=== PATIENT | female | born 1975 | race Caucasian/White ===

== ENCOUNTER → 2017-07-07 | Outpatient (CLI) | payer BC ==
--- NOTE | 2017-07-07 15:43 | US ---
EXAMINATION TYPE: US transvaginal DATE OF EXAM: 07/07/2017 COMPARISON: NONE CLINICAL HISTORY: N92.1 Menometrorrhagia. Patient stated has had vaginal bleeding entire June 2017 ; IUD inserted October 2016; HX of uterine fibroids; TECHNIQUE: Transvaginal (TV) Date of LMP: Patient stated normally begins 4th day of each month EXAM MEASUREMENTS: Uterus: 9.1 x 8.6 x 4.9 cm Endometrial Stripe: 0.8 cm Right Ovary: 2.0 x 1.2 x 1.2 cm Left Ovary: 2.5 x 2.6 x 1.7 cm 1. Uterus: Anteverted; enlarged width due to couple of uterine fibroids with larger at right myometr ium = 5.0 x 4.7 x 5.9 cm and smaller fibroid at upper left = 3.2 x 3.4 x 1.9 cm. Small Nabothian cy sts in cervix. 2. Endometrium: Hyperechoic IUD is noted in normal location in upper endometrium 3. Right Ovary: multiple small follicles 4. Left Ovary: multiple follicles with largest = 1.3 x 1.0 x 0.7cm and noted with peripheral ring of color flow 5. Bilateral Adnexa: wnl 6. Posterior cul-de-sac: wnl IMPRESSION: 1. Two hypoechoic myometrial masses, likely uterine leiomyomas, the largest measuring 5.9 cm. 2. Centrally placed intrauterine device bridging the lower and upper uterine segments.
== END | disposition home or self-care (01) ==
LOC: RADUSWWP 14:40
PROVIDERS: ATTEND Internal Medicine
DX: N85.8 Other specified noninflammatory disorders of uterus (principal); N92.1 Excessive and frequent menstruation with irregular cycle; Z97.5 Presence of (intrauterine) contraceptive device
CPT/HCPCS: 76830

== ENCOUNTER → 2017-08-25 | Outpatient (CLI) | payer BC ==
--- NOTE | 2017-08-25 16:45 | P.HPBAR ---
Bariatric H&P - History & Physicial H&P Date: 08/25/17 History & Physicial: Visit/CC: Patient initial contact: Initial weight: Initial weight in pounds: Height: 5 ft 6.5 in Initial BMI: Last weight: Current weight: 129.274 kg Current weight in pounds: Current BMI: 45.3 [place] body weight (based on NIH guidelines): Excess body weight loss: The patient is a 42 year-old F who presents for Bariatric Assessment. Patient presents to the bariatric clinic today as a new patient evaluation for bariatric surgery. The patient states that she has suffered with her weight for the majority of her adult life. She is trying a variety of different weight loss methods without success. Patient is interested in sleeve gastrectomy. Patient suffers from hypertension and chronic back pain. No significant reflux symptoms, no dysphagia, no DVT history. Patient states she may need a hysterectomy because of vaginal bleeding prior to bariatric surgery. She recently completed she believes her 6 month supervised weight loss. Review of Systems The patient denies any acute changes in vision or hearing, no dysphagia or odynophagia, no chest pain or shortness of breath, no dysuria or hematuria, no headache, no runny nose, no rectal bleeding or melena, no unexplained weight loss Past Medical History Past Medical History: Hypertension History of Any Multi-Drug Resistant Organisms: None Reported Past Surgical History: No Surgical Hx Reported Past Anesthesia/Blood Transfusion Reactions: No Reported Reaction Additional Past Anesthesia/Blood Transfusion Reaction / Comm: Never been exposed to anesthesia Past Psychological History: No Psychological Hx Reported Smoking Status: Former smoker Past Alcohol Use History: None Reported Additional Past Alcohol Use History / Comment(s): 1pack/day x 8years, quit smoking 2008 Past Drug Use History: None Reported - Past Family History Father Additional Family Medical History / Comment(s): Arnold Chiari disease/ malformation (brain slips down into spinal canal) Mother Family Medical History: No Reported History Surgical - Exam Physical exam: General: Well-developed, well-nourished HEENT: Normocephalic, sclerae nonicteric Abdomen: Nontender, nondistended Extremities: No edema Neuro: Alert and oriented Bariatric Assessment & Plan (1) Morbid obesity Narrative/Plan: The risks and benefits of surgical weight loss procedures were discussed in detail with the patient today. She remains interested in sleeve gastrectomy. We discussed the anticipated weight loss with that procedure and compared it to the alternative procedures. The risks of all these procedures were reviewed as well. We'll plan upper endoscopy and preoperative lab work. Patient will discuss with her information technology technician the timing of her hysterectomy. Tentatively plan sleeve gastrectomy in the near future. Status: Acute Bariatric Checklist Checklist: Plan: Checklist: EGD: 1. Hiatal hernia: 2. H. Pylori: HgbA1c: Vitamin D: Smoking: Former smoker Primary care physician referral: Psychiatry clearance: Cardiology clearance: Sleep study: Diet journal: VTE risk score: VTE risk level: Rehab needs at discharge:
[2017-08-25 17:13] VITALS: BP 147/66; PULSE 75; RESP 15; TEMP 98; BMI 45.3
== END | disposition home or self-care (01) ==
LOC: BARWHC3 15:04
PROVIDERS: ATTEND Surgery
DX: E66.01 Morbid (severe) obesity due to excess calories (principal); Z68.42 Body mass index [BMI] 45.0-49.9, adult; Z87.891 Personal history of nicotine dependence
CPT/HCPCS: 99211

== ENCOUNTER → 2017-09-02 | Outpatient (CLI) | payer BC, OTHER ==
[2017-09-02 13:23] LABS: HCT 36.1 % (34.0-46.0); HGB 11.4 gm/dL (11.4-16.0); Hypochromasia Moderate; MCH 22.2 pg (25.0-35.0); MCHC 31.5 g/dL (31.0-37.0); MCV 70.3 fL (80.0-100.0); Microcytosis Moderate; Platelet Count 336 k/uL (150-450); RBC 5.13 m/uL (3.80-5.40); RDW 14.4 % (11.5-15.5); WBC 9.3 k/uL (3.8-10.6)
[2017-09-02 13:39] LABS: ALT 28 U/L (9-52); AST 19 U/L (14-36); Albumin 4.7 g/dL (3.5-5.0); Alkaline Phosphatase 81 U/L (38-126); Anion Gap 16 mmol/L; Blood Urea Nitrogen 8 mg/dL (7-17); Calcium 9.9 mg/dL (8.4-10.2); Carbon Dioxide 24 mmol/L (22-30); Chloride 103 mmol/L (98-107); Glucose 99 mg/dL (74-99); Potassium 4.6 mmol/L (3.5-5.1); Sodium 143 mmol/L (137-145); Total Bilirubin 0.4 mg/dL (0.2-1.3); Total Protein 8.2 g/dL (6.3-8.2)
[2017-09-02 18:47] LABS: Vitamin D 25 Hydroxy 11.1 ng/mL (30.0-100.0)
[2017-09-02 21:22] LABS: Hemoglobin A1C 5.5 % (4.0-6.0)
== END | disposition home or self-care (01) ==
LOC: LABWHC1 12:22
PROVIDERS: ATTEND Surgery
DX: E88.81 Metabolic syndrome and other insulin resistance (principal); E66.01 Morbid (severe) obesity due to excess calories; K90.89 Other intestinal malabsorption; E55.9 Vitamin D deficiency, unspecified
CPT/HCPCS: 36415; 80053; 82306; 82607; 83036; 83540; 84425; 85027; 93005

== ENCOUNTER 2017-09-16 11:38 | Day surgery (SDC) | payer BC ==
[2017-09-14 14:33] VITALS: BMI 43.8
[~2017-09-16 11:38] MED LIST: LACTATED RINGERS 1,000 ML IV SCH
[2017-09-16 12:50] VITALS: RESP 16; TEMP 98.4
[2017-09-16] MEDS ORDERED: LIDOCAINE 1% 20 ML VIAL (10MG/ML) FOR IV START INTRADERMA ONE (12:50)
[2017-09-16] MEDS ORDERED: PROPOFOL 10 MG/ML 20 ML VIAL IV ONE (13:38)
[2017-09-16] MEDS ORDERED: MIDAZOLAM 2 MG/2 ML VIAL ONE (13:38)
[2017-09-16] MEDS ORDERED: fentaNYL (PF) 50 MCG/ML 2 ML AMP ONE (13:38)
--- NOTE | 2017-09-16 13:39 | P.GSHP ---
History of Present Illness H&P Date: 09/16/17 Chief Complaint: Anemia, GERD Patient is a bariatric patient who is here for upper and lower endoscopy. Preoperative labs showed iron deficiency anemia. She does have vaginal bleeding. Mild GERD symptoms at times. No dysphagia. Past Medical History Past Medical History: Hypertension History of Any Multi-Drug Resistant Organisms: None Reported Past Surgical History: No Surgical Hx Reported Past Anesthesia/Blood Transfusion Reactions: No Reported Reaction Additional Past Anesthesia/Blood Transfusion Reaction / Comment(s): no prior surgical hx Smoking Status: Former smoker - Past Family History Father Additional Family Medical History / Comment(s): Arnold Chiari disease/ malformation (brain slips down into spinal canal) Mother Family Medical History: No Reported History Medications and Allergies Home Medications Medication Instructions Recorded Confirmed Type Labetalol HCl [Trandate] 600 mg PO BID 08/25/17 09/16/17 History NIFEdipine XL [Procardia Xl] 60 mg PO DAILY 08/25/17 09/16/17 History Allergies Allergy/AdvReac Type Severity Reaction Status Date / Time No Known Allergies Allergy Verified 09/16/17 12:45 Surgical - Exam Vital Signs Temp Pulse Resp BP Pulse Ox 98.4 F 70 16 148/81 99 09/16/17 12:49 09/16/17 12:49 09/16/17 12:49 09/16/17 12:49 09/16/17 12:49 Physical exam: General: Well-developed, well-nourished HEENT: Normocephalic, sclerae nonicteric Abdomen: Nontender, nondistended Extremities: No edema Neuro: Alert and oriented Assessment and Plan (1) Morbid obesity Narrative/Plan: Will proceed with upper and lower endoscopy. Current Visit: No Status: Acute Code(s): E66.01 - MORBID (SEVERE) OBESITY DUE TO EXCESS CALORIES SNOMED Code(s): 697089277
--- NOTE | 2017-09-16 13:54 | P.PCN ---
Date of Procedure: 09/16/17 Procedure(s) Performed: PREOPERATIVE DIAGNOSIS: GERD, iron deficiency anemia POSTOPERATIVE DIAGNOSIS: Stratus with small erosions, PROCEDURE: 1. EGD with biopsy 2. Colonoscopy ANESTHESIA: MAC SURGEON: Nitesh Goss M.D. SPECIMENS: Antrum ENDOSCOPIC PROCEDURE: The patient was on the endoscopy table in the left decubitus position. The Olympus gastroscope was inserted into the oropharynx and passed under direct visualization to the region of the third portion of the duodenum. From that point the scope was slowly withdrawn inspecting all surfaces carefully. There were no neoplastic inflammatory or polypoid lesions throughout the duodenum. The pylorus was widely patent. The stomach was carefully inspected. There was gastritis present with multiple small erosions. A biopsy of the antrum took place to rule out H. pylori. Retroflexion revealed a normal hiatus. The esophagus was then carefully examined. There were no neoplastic inflammatory or polypoid lesions throughout the visualized esophagus. The patient was kept on the endoscopy table in the left decubitus position. The Olympus colonoscope was inserted into the anus and passed under direct visualization to the base of the cecum. The appendiceal orifice was visualized. From that point the scope was slowly withdrawn inspecting all surfaces carefully. There were no neoplastic inflammatory or polypoid lesions throughout the cecum, ascending, transverse, descending, sigmoid and rectum. There was mild diverticulosis noted in the left colon. Digital rectal examination was normal. The patient was taken to the recovery room in stable condition per anesthesia guidelines. RECOMMENDATIONS: Increase fiber. Begin antiacids. Await biopsy results.
[2017-09-16 14:03] VITALS: BP 139/64; PULSE 73
== END 2017-09-16 14:40 | disposition home or self-care (01) ==
LOC: ORWHC2ENDO 11:38
PROVIDERS: ATTEND Surgery
DX: K29.70 Gastritis, unspecified, without bleeding (principal); K25.9 Gastric ulcer, unspecified as acute or chronic, without hemorrhage or perforation; K57.30 Diverticulosis of large intestine without perforation or abscess without bleeding; D50.9 Iron deficiency anemia, unspecified; E66.01 Morbid (severe) obesity due to excess calories; Z68.41 Body mass index [BMI] 40.0-44.9, adult; I10 Essential (primary) hypertension; Z79.899 Other long term (current) drug therapy; Z87.891 Personal history of nicotine dependence
CPT/HCPCS: 81025; 88305; 45378; 43239; J2250; J3010; J2704

== ENCOUNTER → 2017-11-22 | Outpatient (CLI) | payer BC ==
[2017-11-22 13:27] LABS: Basophils # (A) 0.1 k/uL (0-0.2); Basophils % (A) 1 %; Eosinophils # (A) 0.3 k/uL (0-0.7); Eosinophils % (A) 3 %; HCT 33.7 % (34.0-46.0); HGB 10.1 gm/dL (11.4-16.0); Hypochromasia Marked; Lymphocytes # (A) 1.5 k/uL (1.0-4.8); Lymphocytes % (A) 18 %; MCH 20.3 pg (25.0-35.0); MCHC 29.8 g/dL (31.0-37.0); Mean Platelet Volume 6.8; Microcytosis Marked; Monocytes # (A) 0.3 k/uL (0-1.0); Monocytes % (A) 4 %; Neutrophils # (A) 6.1 k/uL (1.3-7.7); Neutrophils % (A) 73 %; Platelet Count 291 k/uL (150-450); RBC 4.96 m/uL (3.80-5.40); RDW 15.1 % (11.5-15.5); WBC 8.4 k/uL (3.8-10.6)
[2017-11-22 13:34] LABS: Anion Gap 12 mmol/L; Blood Urea Nitrogen 12 mg/dL (7-17); Calcium 9.3 mg/dL (8.4-10.2); Carbon Dioxide 22 mmol/L (22-30); Chloride 105 mmol/L (98-107); Glucose 119 mg/dL (74-99); Potassium 4.7 mmol/L (3.5-5.1); Sodium 139 mmol/L (137-145)
== END ==
LOC: LABPAT 12:47
PROVIDERS: ATTEND Obstetrics & Gynecology
DX: Z01.812 Encounter for preprocedural laboratory examination (principal)
CPT/HCPCS: 36415; 80048; 85025

== ENCOUNTER 2017-11-24 05:55 | Observation (INO) | payer BC, OTHER ==
[2017-11-16 17:50] VITALS: BMI 43.8
--- NOTE | 2017-11-23 16:45 | P.HPOB ---
History of Present Illness H&P Date: 11/23/17 Chief Complaint: Fibroid uterus Patient is a 42-year-old female who has an enlarged fibroid uterus. She also has very heavy bleeding with passage of large clots. She had been using ParaGard for control but it sounds uncomfortable. Fibers noted to be 5 cm x 6 cm and 3 cm x 3 cm. There are at least 2 present. In discussions with the patient to try and control her bleeding both on Mirena and NovaSure were also offered to help stop the bleeding. However she would prefer more definitive treatment as she also has increased pressure and urinary and bowel complaints due to the fibroids. She is therefore scheduled for a robotic- assisted laparoscopic hysterectomy possible TIMOTEO and possible BSO. Risks/ benefits/alternatives were discussed with patient in detail and did include but were not limited to damage to bladder, bowel, vascular injuries, nerve damage, bleeding, infection, ureteral injuries. All other questions are answered for her prior to proceeding to the operating room. Past Medical History Past Medical History: Hypertension Additional Past Medical History / Comment(s): uterine fibroids History of Any Multi-Drug Resistant Organisms: None Reported Past Surgical History: No Surgical Hx Reported Additional Past Surgical History / Comment(s): EGD Past Anesthesia/Blood Transfusion Reactions: No Reported Reaction Additional Past Anesthesia/Blood Transfusion Reaction / Comment(s): Never has had general anesthesia or blood transfusion Smoking Status: Former smoker - Past Family History Father Additional Family Medical History / Comment(s): Arnold Chiari disease/ malformation (brain slips down into spinal canal) Mother Family Medical History: No Reported History Medications and Allergies Home Medications Medication Instructions Recorded Confirmed Type Labetalol HCl [Trandate] 600 mg PO BID 08/25/17 11/16/17 History NIFEdipine XL [Procardia Xl] 60 mg PO HS 08/25/17 11/16/17 History Omeprazole [PriLOSEC] 20 mg PO AC-BRKFST #90 cap 09/16/17 11/16/17 Rx Allergies Allergy/AdvReac Type Severity Reaction Status Date / Time No Known Allergies Allergy Verified 11/16/17 17:26 Exam Osteopathic Statement: *. No significant issues noted on an osteopathic structural exam other than those noted in the History and Physical/Consult. - OBG Physical Exam Breast: both: normal (no masses) Abdomen: bowel sounds normal, no diffuse tenderness, no bruit present, no guarding noted, no hepatomegaly, no splenomegaly, no mass Vulva: both: normal Vagina: normal moisture, no discharge Cervix: no lesion, no discharge Uterus: normal size, enlarged (nodular with fibroids), normal contour Adnexa: both: normal Anus/Rectum: normal perianal skin, no rectal mass, no hemorrhoids, heme negative
[2017-11-24] MEDS ORDERED: DEXAMETHASONE SOD PHOSPHATE 10 MG/ML 1 ML VIAL IV ONE (06:07)
[2017-11-24] MEDS ORDERED: ONDANSETRON 4 MG/2 ML VIAL IVP ONE (06:07)
[2017-11-24] MEDS ORDERED: LIDOCAINE 1% 20 ML VIAL (10MG/ML) FOR IV START INTRADERMA ONE (06:35)
[2017-11-24] MEDS: LACTATED RINGERS 1,000 ML IV SCH ×2 (06:35→06:37)
[2017-11-24] MEDS ORDERED: PHENYLEPHRINE-0.9% NACL SYG 1 MG/10 ML SYRINGE ONE (07:29)
[2017-11-24] MEDS ORDERED: KETOROLAC 30 MG/ML 1 ML VIAL ONE (07:29)
[2017-11-24] MEDS ORDERED: NEOSTIGMINE 1 MG/ML 10 ML VIAL ONE (07:29)
[2017-11-24] MEDS ORDERED: GLYCOPYRROLATE 0.2 MG/ML 2 ML VIAL ONE (07:29)
[2017-11-24] MEDS ORDERED: ROCURONIUM BROMIDE 10 MG/ML 10 ML VIAL IV ONE (07:29)
[2017-11-24] MEDS ORDERED: PROPOFOL 10 MG/ML 20 ML VIAL IV ONE (07:29)
[2017-11-24] MEDS ORDERED: HYDROmorphone (PF) 1 MG/ML ONE (07:29)
[2017-11-24] MEDS ORDERED: SUCCINYLCHOLINE CHLORIDE VIAL 200 MG/10 ML VIAL IV ONE (07:29)
[2017-11-24] MEDS ORDERED: ePHEDrine SULFATE/0.9% NACL/PF 50 MG/5 ML SYRINGE IV ONE (07:29)
[2017-11-24] MEDS ORDERED: LIDOCAINE 1% INJ 10MG/ML (20 ML MDV) ONE (07:29)
[2017-11-24] MEDS ORDERED: fentaNYL (PF) 50 MCG/ML 2 ML AMP ONE (07:29)
[2017-11-24] MEDS ORDERED: MIDAZOLAM 2 MG/2 ML VIAL ONE (07:29)
[2017-11-24] MEDS ORDERED: BUPIVACAINE (PF) 0.5% 30 ML VIAL SQ ONE ×2 (07:56)
[2017-11-24] MEDS ORDERED: ONDANSETRON 4 MG/2 ML VIAL IVP PRN (09:02)
[2017-11-24] MEDS ORDERED: SENNOSIDES-DOCUSATE SODIUM 1 EACH TAB PO PRN (09:02)
[2017-11-24] MEDS ORDERED: Acetaminophen-Codeine 300-30mg TAB PO PRN ×2 (09:02)
[2017-11-24] MEDS ORDERED: SIMETHICONE 80 MG CHEWABLE PO PRN (09:02)
[2017-11-24] MEDS ORDERED: diphenhydrAMINE 50 MG/ML 1 ML VIAL IVP PRN (09:02)
--- NOTE | 2017-11-24 09:12 | P.OP ---
Date of Procedure: 11/24/17 Preoperative Diagnosis: Fibroid uterus with menorrhagia Postoperative Diagnosis: Same Procedure(s) Performed: Robotic-assisted laparoscopic hysterectomy Anesthesia: JOE Surgeon: Олег Acosta Insurance Sales Specialist #1: Macy Bills Estimated Blood Loss (ml): 50 Urine output (ml): 300 Pathology: other (Uterus and cervix) Condition: stable Disposition: floor Operative Findings: Grossly enlarged fibroid uterus. Normal ovaries Description of Procedure: Patient was taken to the operating suite where a general anesthetic was found be adequate. She was prepped and draped in the normal sterile fashion and placed in the dorsal lithotomy position. Initially a speculum was inserted into the vagina and the anterior lip of the cervix was identified and grasped with single-tooth tenaculum. Uterus was then sounded to 11 cm and the cup size was measured to 3 cm. Sylvia manipulator was then inserted without difficulty following placement of stay sutures at 3 and 9 on the cervix. Once this was placed Prieto cath was placed and other instruments removed. Gloves were then changed and attention was turned to the abdominal portion procedure where 2 mL of quarter percent Marcaine was injected approximately 2 inches above the umbilicus due to enlarged uterus and measurement of maximal Ascent. Through a 5 mm skin incision a left scopic camera was inserted under direct visualization. Once this was placed patient was placed in steep Trendelenburg position and gas was allowed to fully insufflate the abdomen. 2 lateral ports were then placed through 8 mm skin incisions approximately 10 cm from the umbilicus along the same line. Through these incisions da Dorina ports and sleeves were inserted. Once this was completed a fourth port and sleeve was inserted between the left lateral and the medial port. This was through a 1 cm incision. Again this was placed under direct visualization. Camera port was exchanged for a da Dorina camera port and robot was brought in and docked. Once this was completed with a scissor and the one arm and a [place] grasper and the 2 arm I did break scrub and go to the console. Uterus was then elevated and tipped to the right side and the left ureteral ovarian ligament was identified cauterized and transected. Fallopian tube was then transected following cauterization and tissues through the broad ligament/mesosalpinx were also cauterized and transected to the round ligament. Round then was then cauterized transected and sterilization lateral vascularity along the left side of the uterus was done. Uterus was then retroverted and the bladder flap identified. It was then undermined with the [place] grasper and incised across face uterus with the scissor. Bladder was then bluntly dissected out of the operative field. Once this was accomplished the right side of the uterus was developed similarly to the left side. Once this was accomplished balloon was blown up in the manipulator and an anterior colpotomy was made. Glue cup was identified and then followed in a counterclockwise fashion around the entire cervix cheating head when necessary to maintain excellent hemostasis. Once 3 and 60 was completed uterus is brought into the vagina to maintain pneumoperitoneum. Pelvis was then irrigated bleeding was assessed and verified along the pedicles and then the instruments were exchanged for Baron grasper and a make suture cut. Using to OB lock suture the vagina was then reapproximated in a running fashion. Once this was completed again the pelvis was irrigated no bleeding is noted through the pedicles therefore instruments were removed and gas was allowed to expel from the abdomen. 5 deep breaths were provided during this process. Dr. Bills at this point close the incision subcuticularly with 4-0 Vicryl and I did do a cystoscopy verifying good flow from both ureteral jets. Sponge, lap, needle counts were all correct 2. Patient was then taken to the recovery room in stable and satisfactory condition.
[2017-11-24] MEDS: HYDROmorphone 0.5 MG/0.5 ML SYRINGE IVP PRN ×2 (09:47→10:04)
[2017-11-24] MEDS: KETOROLAC 30 MG/ML 1 ML VIAL IVP PRN ×3 (09:47→21:24)
[2017-11-24 16:41] VITALS: RESP 20
[2017-11-24] MEDS: LABETALOL 200 MG TAB PO SCH (20:17)
[2017-11-24] MEDS ORDERED: ACETAMINOPHEN TAB 325 MG TAB PO PRN (20:49)
[2017-11-25] MEDS: KETOROLAC 30 MG/ML 1 ML VIAL IVP PRN (04:43)
[2017-11-25] MEDS ORDERED: ceFAZolin IN SWFI 2 GM/20 ML SYRINGE IVP ONE (06:00)
[2017-11-25] MEDS: LABETALOL 200 MG TAB PO SCH (08:08)
[2017-11-25] MEDS: LACTATED RINGERS 1,000 ML IV SCH (08:10)
--- NOTE | 2017-11-25 08:48 | P.DS ---
Providers Date of admission: 11/24/17 23:22 Expected date of discharge: 11/25/17 Attending physician: Олег Acosta Primary care physician: Isela Lea [facility] Course: Patient is doing very well postop day 1. She is ambulating, voiding, and she is tolerating her diet. She voices no complaints. Vital signs are stable afebrile. Heart regular, lungs clear, extremities are without pain. Abdomen is soft incisions are clean dry and intact, bowel sounds noted. Prescription for Motrin Motrin has been forwarded to the pharmacy. All of the questions are answered for her at this time. She is stable for discharge this time. She'll follow up with me in 1 week. Discharge instructions were thoroughly reviewed and again all questions are answered for her. Patient Condition at Discharge: Good Plan - Discharge Summary Discharge Rx Participant: No New Discharge Prescriptions: New Ibuprofen [Motrin] 600 mg PO Q6HR PRN #30 tab PRN Reason: Pain No Action NIFEdipine XL [Procardia Xl] 60 mg PO HS Labetalol HCl [Trandate] 600 mg PO BID Discharge Medication List Labetalol HCl [Trandate] 600 mg PO BID 08/25/17 [History] NIFEdipine XL [Procardia Xl] 60 mg PO HS 08/25/17 [History] Ibuprofen [Motrin] 600 mg PO Q6HR PRN #30 tab 11/25/17 [Rx] Follow up Appointment(s)/Referral(s): Олег Acosta DO [Doctor of Osteopathic Medicine] - 1 Week Activity/Diet/Wound Care/Special Instructions: No heavy lifting, limit stairs and driving, and pelvic rest. If any high temperatures, heavy bleeding, or severe pain call my office
[2017-11-25 08:57] VITALS: PULSE 68; TEMP 98
[2017-11-25 09:09] VITALS: BP 136/77
== END 2017-11-25 09:22 ==
LOC: OR 05:55 → 6PED 09:14 → OR 23:22 → 6PED 23:22
PROVIDERS: ADMIT Obstetrics & Gynecology; ATTEND Obstetrics & Gynecology
DX: D25.9 Leiomyoma of uterus, unspecified (principal); N72 Inflammatory disease of cervix uteri; N92.1 Excessive and frequent menstruation with irregular cycle; N93.9 Abnormal uterine and vaginal bleeding, unspecified; I10 Essential (primary) hypertension; Z79.899 Other long term (current) drug therapy; Z87.891 Personal history of nicotine dependence; Z82.79 Family history of other congenital malformations, deformations and chromosomal abnormalities
CPT/HCPCS: 58550; S2900; 81025; 86850; 86900; 86901; 88307

== ENCOUNTER → 2018-10-17 | Outpatient (CLI) | payer BC ==
[2018-10-17 13:24] VITALS: BP 181/93; PULSE 91; TEMP 98.7; BMI 44.5
--- NOTE | 2018-10-17 14:00 | P.BASOAP ---
Subjective Progress Note Date: 10/17/18 Principal diagnosis: Morbid obesity Patient returns today for follow-up evaluation. Last seen in September of last year. Had upper endoscopy done then which showed mild gastritis. Patient is ready for sleeve gastrectomy at this time. She underwent da Dorina hysterectomy last year. No other changes to her medical history. Objective - Vital Signs Vital signs: Vital Signs Temp 98.7 F 10/17/18 13:21 Pulse 91 10/17/18 13:21 Resp BP 181/93 10/17/18 13:21 Pulse Ox Intake & Output 10/16/18 10/17/18 10/17/18 18:59 06:59 18:59 Weight 127.006 kg - Exam Abdomen: Soft, nontender, nondistended Assessment/Plan (1) Morbid obesity Narrative/Plan: Review the surgical consent form in detail. All questions answered. Patient anxious to proceed with sleeve gastrectomy. We'll tentatively schedule in the next 4 weeks or so. Plan: Date: 10/17/18 Initial Weight: 126.915 kg Initial BMI: 44.4 Current Weight: 127.006 kg Current BMI: 44.5 Type of Surgery: Total Volume in Band: Previous Volume: Volume Removed: Volume Added: Band Size:
== END ==
LOC: BARWHC3 13:11
PROVIDERS: ATTEND Surgery
DX: E66.01 Morbid (severe) obesity due to excess calories (principal); Z68.41 Body mass index [BMI] 40.0-44.9, adult; Z90.710 Acquired absence of both cervix and uterus
CPT/HCPCS: 99211

== ENCOUNTER → 2018-10-23 | Outpatient (CLI) | payer BC ==
[2018-10-23 14:21] VITALS: BMI 45.4
== END ==
LOC: BARWHC3 09:05
PROVIDERS: ATTEND Surgery
DX: E66.01 Morbid (severe) obesity due to excess calories (principal); Z68.42 Body mass index [BMI] 45.0-49.9, adult
CPT/HCPCS: 97804

== ENCOUNTER → 2018-11-13 | Outpatient (CLI) | payer BC ==
[2018-11-13 14:47] LABS: Basophils % (A) 0 %; Eosinophils # (A) 0.2 k/uL (0-0.7); Eosinophils % (A) 2 %; HGB 12.6 gm/dL (11.4-16.0); Lymphocytes % (A) 22 %; MCHC 32.3 g/dL (31.0-37.0); MCV 80.6 fL (80.0-100.0); Mean Platelet Volume 8.1; Monocytes # (A) 0.3 k/uL (0-1.0); Monocytes % (A) 4 %; Neutrophils # (A) 6.3 k/uL (1.3-7.7); Neutrophils % (A) 71 %; Platelet Count 258 k/uL (150-450); RBC 4.84 m/uL (3.80-5.40); RDW 14.7 % (11.5-15.5); WBC 8.9 k/uL (3.8-10.6)
[2018-11-13 15:02] LABS: ALT 17 U/L (9-52); AST 20 U/L (14-36); African American GFR (CKD) >90 (>60 ml/min/1.73 sqM); Albumin 4.4 g/dL (3.5-5.0); Alkaline Phosphatase 78 U/L (38-126); Anion Gap 9 mmol/L; Blood Urea Nitrogen 16 mg/dL (7-17); Calcium 9.1 mg/dL (8.4-10.2); Carbon Dioxide 25 mmol/L (22-30); Chloride 105 mmol/L (98-107); Glucose 124 mg/dL (74-99); Potassium 4.3 mmol/L (3.5-5.1); Sodium 139 mmol/L (137-145); Total Bilirubin 0.5 mg/dL (0.2-1.3); Total Protein 7.1 g/dL (6.3-8.2)
== END | disposition home or self-care (01) ==
LOC: LABPAT 14:00
PROVIDERS: ATTEND Surgery
DX: Z01.812 Encounter for preprocedural laboratory examination (principal)
CPT/HCPCS: 36415; 80053; 85025; 93005

== ENCOUNTER 2018-11-27 06:57 | Inpatient (IN) | payer BC ==
[~2018-11-27 06:57] MED LIST changes: +DEXAMETHASONE SOD PHOSPHATE 10 MG/ML 1 ML VIAL IV ONE; +ENOXAPARIN 40 MG/0.4 ML SYRINGE SQ ONE; -LACTATED RINGERS 1,000 ML IV SCH; +LIDOCAINE 1% 20 ML VIAL (10MG/ML) FOR IV START INTRADERMA PRN; +MIDAZOLAM 2 MG/2 ML VIAL IV PRN; +ONDANSETRON 4 MG/2 ML VIAL IVP ONE; +ceFAZolin 3 GM in SODIUM CHLORIDE 0.9% 100 ML IVPB ONE; +fentaNYL (PF) 50 MCG/ML 2 ML AMP IV PRN
[2018-11-27] MEDS: LACTATED RINGERS 1,000 ML IV SCH (07:31)
--- NOTE | 2018-11-27 07:47 | P.GSHP ---
History of Present Illness H&P Date: 11/27/18 Chief Complaint: Release 49-year-old female with known to our service. Here today for sleeve gastrectomy. Patient first seen for evaluation of bariatric surgery in August 2017. Patient has tried a variety of different weight loss methods without success. Patient suffers from hypertension and chronic back pain. Patient with iron deficiency anemia likely related to vaginal bleeding. Recent upper and lower endoscopy showed gastritis with erosions. Past Medical History Past Medical History: Hypertension Additional Past Medical History / Comment(s): uterine fibroids History of Any Multi-Drug Resistant Organisms: None Reported Past Surgical History: Hysterectomy Additional Past Surgical History / Comment(s): EGD Past Anesthesia/Blood Transfusion Reactions: No Reported Reaction Additional Past Anesthesia/Blood Transfusion Reaction / Comment(s): Never has had general anesthesia or blood transfusion Smoking Status: Former smoker - Past Family History Father Additional Family Medical History / Comment(s): Arnold Chiari disease/malformation (brain slips down into spinal canal) Mother Family Medical History: No Reported History Medications and Allergies Home Medications Medication Instructions Recorded Confirmed Type Labetalol HCl [Trandate] 600 mg PO HS 08/25/17 11/27/18 History Labetalol [Trandate] 400 mg PO QAM 11/15/18 11/27/18 History Allergies Allergy/AdvReac Type Severity Reaction Status Date / Time No Known Allergies Allergy Verified 11/27/18 07:14 Surgical - Exam Vital Signs Temp Pulse Resp BP Pulse Ox 97 F L 68 16 149/77 97 11/27/18 07:20 11/27/18 07:20 11/27/18 07:20 11/27/18 07:20 11/27/18 07:20 Physical exam: General: Well-developed, well-nourished HEENT: Normocephalic, sclerae nonicteric Abdomen: Nontender, nondistended Extremities: No edema Neuro: Alert and oriented Assessment and Plan (1) Morbid obesity Narrative/Plan: Will proceed with laparoscopic sleeve gastrectomy at this time. The risks of bleeding, infection, stenosis, stricture, leak, abscess, fistula formation, peritonitis, poor weight loss, reflux, vomiting, conversion to an open procedure, aborting sleeve gastrectomy, MS, PE, DVT, and were discussed. The patient understands and wishes to proceed. Current Visit: No Status: Acute Code(s): E66.01 - MORBID (SEVERE) OBESITY DUE TO EXCESS CALORIES SNOMED Code(s): 179307022
[2018-11-27] MEDS ORDERED: PROPOFOL 10 MG/ML 20 ML VIAL IV ONE (08:25)
[2018-11-27] MEDS ORDERED: NEOSTIGMINE 1 MG/ML 10 ML VIAL ONE (08:25)
[2018-11-27] MEDS ORDERED: GLYCOPYRROLATE 0.2 MG/ML 2 ML VIAL ONE (08:25)
[2018-11-27] MEDS ORDERED: HYDROmorphone (PF) 1 MG/ML ONE (08:25)
[2018-11-27] MEDS ORDERED: ROCURONIUM BROMIDE 10 MG/ML 10 ML VIAL IV ONE (08:25)
[2018-11-27] MEDS ORDERED: MIDAZOLAM 2 MG/2 ML VIAL ONE (08:25)
[2018-11-27] MEDS ORDERED: fentaNYL (PF) 50 MCG/ML 2 ML AMP ONE (08:25)
[2018-11-27] MEDS ORDERED: LIDOCAINE 1% INJ 10MG/ML (20 ML MDV) ONE (08:25)
[2018-11-27] MEDS ORDERED: BUPIVACAINE (PF) 0.5% 30 ML VIAL SQ ONE ×2 (08:33)
[2018-11-27] MEDS ORDERED: METHYLENE BLUE 3 MG in DEXTROSE 5% IN WATER 500 ML IRRIGATION ONE ×2 (08:49)
[2018-11-27] MEDS ORDERED: LACTATED RINGERS 1,000 ML IV ONE ×2 (08:49→10:56)
[2018-11-27] MEDS ORDERED: NALOXONE 0.4 MG/ML 1 ML VIAL IV PRN (10:20)
[2018-11-27] MEDS ORDERED: diphenhydrAMINE 50 MG/ML 1 ML VIAL IVP PRN (10:20)
--- NOTE | 2018-11-27 10:24 | P.OP ---
Date of Procedure: 11/27/18 Procedure(s) Performed: PREOPERATIVE DIAGNOSIS: Morbid obesity, hypertension, chronic back pain POSTOPERATIVE DIAGNOSIS: Same, hiatal hernia PROCEDURE: Laparoscopic sleeve gastrectomy with repair hiatal hernia SURGEON: Ana Paula EBL: Minimal ANESTHESIA: General COMPLICATIONS: None OPERATIVE PROCEDURE: Patient was placed in the operating table in the supine position. She was placed under general anesthesia at that time. The abdomen was prepped and draped in sterile fashion after the patient was placed in l ithotomy. A 5 mm optical trocar was used to enter the abdominal cavity in the left upper quadrant. Insufflation took place to 15 millimeters mercury. An additional right subxiphoid 5 mm trocar was then placed under direct relation and then removed. 2 additional 5 mm trochars were placed in the right upper quadrant and left upper quadrant under direct visualization and a 15 mm trocar in the supraumbilical location. The liver was retracted using a medium Robert liver retractor through the right subxiphoid trocar site. The hiatus was inspected. The patient had a small sized hiatal hernia. Circumferentially the phrenoesophageal ligament was incised identifying the actual defect. The right diaphragmatic crura was well visualized. I was able to bluntly dissect and visualize the left diaphragmatic crura. At that point I moved to the mid aspect of the greater curvature the stomach. The short gastric vasculature was divided using a LigaSure device proximally. I then switched and divided the short gastrics distally to a 3-4 cm from the pylorus. The dissection took place up to the left diaphragmatic crura at that point. The posterior short gastrics were likewise divided using the LigaSure device. Once the stomach was fully mobilized the blunt tipped 40-Argentine bougie dilator was advanced into the stomach and advanced all the way to the prepyloric location. A black echelon 60 stapler with seam guard was utilized and fired tangentially across the antrum taking care to avoid narrowing at the incisura angularis. Subsequent firings of the stapler took place. A total of 5 green echelon 60 staplers with seam guard took place proximally staying on the outer edge of our dilator. Once we reached the most proximal portion of the stomach a single firing of the gold echelon 60 stapler without seen guard took place. This only covered a distance of about 1 cm. The oral gastric tube was reinserted. The stomach was insufflated with approximately 100 mL of methylene blue. No evidence of leak or obstruction was seen. The hiatus was then addressed once again. A single 2-0 Ethibond suture was used to reapproximate the crura posteriorly. This adequately closed the di aphragmatic hernia. Tisseel fibrin glue was then sprayed along the entire length of the staple line. No bleeding was identified. The distal aspect of the sleeve was then reapproximated to the gastrosplenic and gastrocolic ligament using a short running 20 strata fix suture. This was done to prevent kinking or twisting of the sleeve. The stomach remnant was removed from the 15 mm trocar site without difficulty. The fascia at the 15 more site was closed using interrupted 0 Vicryl sutures with the laparoscopic suture passer and Linus Jennifer technique. The insufflation was evacuated. The skin at all 5 incisions were closed using 4-0 Monocryl sutures. Skin glue was then applied. DISPOSITION: Stable to recovery room
[2018-11-27] MEDS ORDERED: ACETAMINOPHEN IV (For NPO) 1,000 MG in EMPTY BAG 1 BAG IVPB ONE (10:30)
[2018-11-27] MEDS: HYDROmorphone 0.5 MG/0.5 ML SYRINGE IVP PRN ×3 (10:33→10:52)
[2018-11-27] MEDS ORDERED: ONDANSETRON 4 MG/2 ML VIAL IVP ONE (10:44)
[2018-11-27] MEDS: ALBUTEROL NEBULIZED 2.5 MG/3 ML INHALATION SCH ×3 (12:52→21:04)
[2018-11-27] MEDS: SIMETHICONE 40 MG/0.6 ML DROPS 2,000 MG/30 ML BOTTLE PO PRN (14:21)
[2018-11-27] MEDS: 0.9% NACL WITH KCL 20 MEQ/L 1,000 ML IV SCH ×2 (14:22→20:56)
[2018-11-27] MEDS: HYDROmorphone 1 MG/ML 1 ML SYRINGE IVP PRN ×2 (17:05→21:12)
[2018-11-27] MEDS: HYOSCYAMINE ORAL DROPS 1.875 MG/15 ML BOTTLE PO PRN (17:09)
--- NOTE | 2018-11-27 20:11 | P.CONS ---
History of Present Illness - History of Present Illness This is a pleasant 43 years old female with past medical history of morbid ob esity, hypertension, history and fibroids status post hysterectomy, chronic back pain. She presents for elective sleeve gastrectomy. Today is postop day 0, medical consult has been ordered for medical management. Post operatively patient was complaining of from chest pain which is improving with observation. Patient denies dyspnea or dizziness, however she looks drowsy from the anesthesia. No abdominal pain or nausea vomiting. No fever. Except for an asymptomatic mild bradycardia, vitals looks stable. Currently she is on normal saline at 150 mL per hour and various pain medication and Lovenox for DVT prophylaxis. Also she got doses of antibiotics, she has chest pain which is improved . pt is still NPO ,and going for swallow eval in the morning . Review of Systems CONSTITUTIONAL: No fever, no malaise, no fatigue. HEENT: No recent visual problems or hearing problems. Denied any sore throat. CARDIOVASCULAR: No orthopnea, PND, no palpitations, no syncope. PULMONARY: No shortness of breath, no cough, no hemoptysis. GASTROINTESTINAL: No diarrhea, no nausea, no vomiting, no abdominal pain. Normoactive bowel sounds. NEUROLOGICAL: No headaches, no weakness, no numbness. HEMATOLOGICAL: Denies any bleeding or petechiae. GENITOURINARY: Denies any burning micturition, frequency, or urgency. MUSCULOSKELETAL/RHEUMATOLOGICAL: Denies any joint pain, swelling, or any muscle pain. ENDOCRINE: Denies any polyuria or polydipsia. Past Medical History Past Medical History: Hypertension Additional Past Medical History / Comment(s): uterine fibroids History of Any Multi-Drug Resistant Organisms: None Reported Past Surgical History: Hysterectomy Additional Past Surgical History / Comment(s): EGD Past Anesthesia/Blood Transfusion Reactions: No Reported Reaction Additional Past Anesthesia/Blood Transfusion Reaction / Comm: Never has had general anesthesia or blood transfusion Past Psychological History: No Psychological Hx Reported Smoking Status: Former smoker Past Alcohol Use History: None Reported Additional Past Alcohol Use History / Comment(s): 1pack/day x 8years, quit smoking 2008 Past Drug Use History: None Reported - Past Family History Father Additional Family Medical History / Comment(s): Arnold Chiari disease/malformation (brain slips down into spinal canal) Mother Family Medical History: No Reported History Medications and Allergies Home Medications Medication Instructions Recorded Confirmed Type Labetalol HCl [Trandate] 600 mg PO HS 08/25/17 11/27/18 History Labetalol [Trandate] 400 mg PO QAM 11/15/18 11/27/18 History Allergies Allergy/AdvReac Type Severity Reaction Status Date / Time No Known Allergies Allergy Verified 11/27/18 10:29 Physical Exam Vitals: Vital Signs Temp Pulse Pulse Resp BP BP Pulse Ox 11/27/18 11:36 97.6 F 54 L 16 154/85 11/27/18 11:15 54 L 16 160/69 99 11/27/18 10:54 52 L 16 160/74 100 11/27/18 10:39 52 L 16 140/62 100 11/27/18 10:24 52 L 16 140/62 100 11/27/18 10:09 97.2 F L 54 L 14 142/65 98 11/27/18 07:20 97 F L 68 16 149/77 97 Intake and Output 11/26/18 11/27/18 11/27/18 22:59 06:59 14:59 Intake Total 2200 Output Total 10 Balance 2190 Intake: IV 2200 Output: Estimated Blood Loss 10 GENERAL: The patient is alert and oriented x3, not in any acute distress. Well developed, well nourished. HEENT: Pupils are round and equally reacting to light. EOMI. No scleral icterus. No conjunctival pallor. Normocephalic, atraumatic. No pharyngeal erythema. No thyromegaly. CARDIOVASCULAR: S1 and S2 present. No murmurs, rubs, or gallops. PULMONARY: Chest is clear to auscultation, no wheezing or crackles. ABDOMEN: Soft, nontender, nondistended, normoactive bowel sounds. No palpable organomegaly. MUSCULOSKELETAL: No joint swelling or deformity. EXTREMITIES: No cyanosis, clubbing, or pedal edema. NEUROLOGICAL: Gross neurological examination did not reveal any focal deficits. SKIN: No rashes. Assessment and Plan Assessment: She is status post laparoscopic sleeve gastrectomy surgery He attends hernia, status post surgical repair Hypertension Morbid obesity Chronic back pain History of uterine fibroids status post hysterectomy Plan: This is a pleasant 44 years old female who presents for elective sleeve gastrectomy and he Hiatal hernia repair. swallow eval in am Labs and medication were reviewed.. Continue same treatment. Continue with symptomatic treatment. Resume home medication. Monitor lytes and vitals. DVT and GI prophylaxis. Pain management and DVT prophylaxis as per surgical team. Further recommendations of the clinical course of the patient Thank you for consulting us, please feel free to contact us for any further question or clarification.
[2018-11-27] MEDS: ENOXAPARIN 40 MG/0.4 ML SYRINGE SQ SCH (21:06)
[2018-11-27] MEDS: ONDANSETRON 4 MG/2 ML VIAL IVP PRN (21:07)
[2018-11-28] MEDS: SIMETHICONE 40 MG/0.6 ML DROPS 2,000 MG/30 ML BOTTLE PO PRN ×2 (02:29→08:35)
[2018-11-28] MEDS: HYOSCYAMINE ORAL DROPS 1.875 MG/15 ML BOTTLE PO PRN ×2 (02:30→08:35)
[2018-11-28] MEDS: HYDROmorphone 1 MG/ML 1 ML SYRINGE IVP PRN ×3 (02:33→11:01)
[2018-11-28] MEDS: 0.9% NACL WITH KCL 20 MEQ/L 1,000 ML IV SCH ×2 (02:40→10:50)
[2018-11-28] MEDS: LACTATED RINGERS 1,000 ML IV SCH (05:16)
[2018-11-28] MEDS: ALBUTEROL NEBULIZED 2.5 MG/3 ML INHALATION SCH ×4 (07:40→20:13)
[2018-11-28] MEDS: ONDANSETRON 4 MG/2 ML VIAL IVP PRN (08:16)
[2018-11-28] MEDS: ENOXAPARIN 40 MG/0.4 ML SYRINGE SQ SCH ×2 (08:16→22:51)
[2018-11-28] MEDS: hydrALAZINE HCL 20 MG/ML 1 ML VIAL IVP PRN ×2 (08:35)
[2018-11-28] MEDS ORDERED: PANTOPRAZOLE 40 MG/10 ML VIAL IV SCH (09:00)
[2018-11-28] MEDS ORDERED: ONDANSETRON 4 MG/2 ML VIAL IVP STA (11:03)
--- NOTE | 2018-11-28 11:13 | FL ---
EXAMINATION TYPE: FL UGI DATE OF EXAM: 11/28/2018 COMPARISON: NONE HISTORY: Postop gastric sleeve surgery TECHNIQUE: A single contrast UGI study is performed after injection of 50 mL of Isovue-370. 1 minute and 19 seconds of fluoroscopy time was utilized with 18 images save FINDINGS: The patient swallowed contrast without difficulty or delay. Esophageal peristalsis and mo tility are within normal limits. There is good flow of contrast along the diaphragmatic hiatus into proximal stomach and subsequent flow into gastric sleeve. There is good flow from distal sleeve into pylorus and duodenal sweep. Patient remains asymptomatic. There is no evidence of contrast extravasat ion to suggest leak. IMPRESSION: No evidence of leak or significant obstruction status post recent gastric sleeve surgery.
[2018-11-28 11:23] VITALS: BMI 43.8
[2018-11-28] MEDS: 1: MVI, ADULT NO.4 WITH VIT K 10 ML, THIAMINE 100 MG, FOLIC ACID 1 MG, POTASSIUM CHLORID IV SCH ×12 (11:26→19:25)
[2018-11-28 12:06] LABS: Basophils % (A) 0 %; Eosinophils % (A) 0 %; HCT 39.4 % (34.0-46.0); HGB 12.7 gm/dL (11.4-16.0); Lymphocytes # (A) 1.1 k/uL (1.0-4.8); Lymphocytes % (A) 8 %; MCH 26.3 pg (25.0-35.0); MCHC 32.2 g/dL (31.0-37.0); MCV 81.7 fL (80.0-100.0); Mean Platelet Volume 8.2; Monocytes # (A) 0.4 k/uL (0-1.0); Monocytes % (A) 3 %; Neutrophils % (A) 89 %; Platelet Count 228 k/uL (150-450); RBC 4.82 m/uL (3.80-5.40); RDW 15.4 % (11.5-15.5); WBC 13.6 k/uL (3.8-10.6)
[2018-11-28 12:14] LABS: African American GFR (CKD) >90 (>60 ml/min/1.73 sqM); Anion Gap 9 mmol/L; Blood Urea Nitrogen 9 mg/dL (7-17); Calcium 8.8 mg/dL (8.4-10.2); Carbon Dioxide 24 mmol/L (22-30); Chloride 106 mmol/L (98-107); Phosphorus 2.2 mg/dL (2.5-4.5); Potassium 4.6 mmol/L (3.5-5.1); Sodium 139 mmol/L (137-145)
[2018-11-28] MEDS ORDERED: Phosphorus Replacement Protoco 1 EACH MISC MISCELLANE PRN (12:45)
[2018-11-28] MEDS ORDERED: HYDROcodone/APAP 15 ML SOLUTION PO PRN (12:48)
[2018-11-28] MEDS ORDERED: ONDANSETRON 4 MG/2 ML VIAL IVP PRN (12:49)
--- NOTE | 2018-11-28 12:50 | P.PN ---
<Tequila Gandhi Tasha - Last Filed: 11/28/18 12:46> Subjective Progress Note Date: 11/28/18 CHIEF COMPLAINT: Morbid obesity HISTORY OF PRESENT ILLNESS: 43-year-old female who is status post laparoscopic sleeve gastrectomy with repair of hiatal hernia. POD #1. Patient examined this morning at the bedside. Patient reports uncontrolled pain. Nursing at bedside and currently administering IV pain medication. Patient also reports nausea with dry heaves overnight. Esophagram completed this morning is negative for leak or obstruction. Patient states she has been up ambulating to the bathroom but has not been ambulate in the hallway yet. Blood pressure this morning significantly elevated at 203/87. Repeat blood pressure 167/80. She is afebrile. W BC 13.6. Hemoglobin 12.7. PHYSICAL EXAM: VITAL SIGNS: Reviewed. GENERAL: Well-developed in no acute distress. HEENT: No sclera icterus. Extraocular movements grossly intact. Moist buccal mucosa. Head is atraumatic, normocephalic. ABDOMEN: Obese. Soft. Nondistended. Surgical tenderness. Surgical sites clean dry and intact without drainage or signs of infection. NEUROLOGIC: Alert and oriented. Cranial nerves II through XII grossly intact. ASSESSMENT: 1. Morbid obesity, status post sleeve gastrectomy and hiatal hernia repair PLAN: 1. Begin bariatric clear liquid diet as tolerated if nausea improves. Continue antibiotics. Increase frequency of Zofran to every 6 hours. 2. Monitor blood pressure. May resume home antihypertensives 3. Activity as tolerated. Patient encouraged to be ambulate in the hallway today. 4. Incentive spirometry 5. Pain control. Continue Dilaudid. Will add [place] PRN 6. Replace phosphorus 7. Monitor white count. Repeat in a.m. Nurse practitioner note has been reviewed by physician. Signing provider agrees with the documented findings, assessment, and plan of care. Objective - Vital Signs Vital signs: Vital Signs Temp 98.1 F 11/28/18 07:58 Pulse 85 11/28/18 07:58 Resp 16 11/28/18 07:58 BP 167/80 11/28/18 11:18 Pulse Ox 95 11/28/18 07:58 Intake & Output 11/27/18 11/28/18 11/28/18 18:59 06:59 18:59 Intake Total 2200 Output Total 10 Balance 2190 Weight 127.006 kg Intake: IV 2200 Output: Estimated Blood Loss 10 Other: Voiding Method Toilet Toilet # Voids 1 1 - Labs CBC & Chem 7: 11/28/18 11:20 11/28/18 11:20 Labs: Abnormal Lab Results - Last 24 Hours (Table) 11/28/18 11/28/18 Range/Units 11:20 11:20 WBC 13.6 H (3.8-10.6) k/uL Neutrophils # 12.0 H (1.3-7.7) k/uL Creatinine 0.48 L (0.52-1.04) mg/dL Phosphorus 2.2 L (2.5-4.5) mg/dL <Nitesh Goss - Last Filed: 11/28/18 17:15> Subjective As above. Patient still nauseated. Upper GI shows no evidence of leak or obstruction. Continue bariatric liquid diet. Add Toradol for pain control. Minimize narcotic use. Objective - Vital Signs Vital signs: Vital Signs Temp 98.7 F 11/28/18 12:37 Pulse 62 11/28/18 16:13 Resp 16 11/28/18 12:37 BP 153/80 11/28/18 12:37 Pulse Ox 98 11/28/18 16:02 Intake & Output 11/27/18 11/28/18 11/28/18 18:59 06:59 18:59 Intake Total 2200 250 Output Total 10 Balance 2190 250 Weight 127.006 kg Intake: IV 2200 Intake, IV Titration 250 Amount Sodium Phosphate 10 mmol 250 In Sodium Chloride 0.9% 250 ml @ 125 mls/hr IVPB ONCE ONE Rx#:[id number] Output: Estimated Blood Loss 10 Other: Voiding Method Toilet Toilet # Voids 1 1 1 - Labs CBC & Chem 7: 11/28/18 11:20 11/28/18 11:20 Labs: Abnormal Lab Results - Last 24 Hours (Table) 11/28/18 11/28/18 Range/Units 11:20 11:20 WBC 13.6 H (3.8-10.6) k/uL Neutrophils # 12.0 H (1.3-7.7) k/uL Creatinine 0.48 L (0.52-1.04) mg/dL Phosphorus 2.2 L (2.5-4.5) mg/dL Assessment and Plan (1) Morbid obesity Current Visit: No Status: Acute Code(s): E66.01 - MORBID (SEVERE) OBESITY DUE TO EXCESS CALORIES SNOMED Code(s): 342999349
[2018-11-28] MEDS ORDERED: SODIUM PHOSPHATE 10 MMOL in SODIUM CHLORIDE 0.9% 250 ML IVPB ONE (13:00)
[2018-11-28] MEDS: LABETALOL 200 MG TAB PO SCH (14:10)
[2018-11-28] MEDS: KETOROLAC 30 MG/ML 1 ML VIAL IVP SCH (16:32)
--- NOTE | 2018-11-28 18:42 | P.PN ---
Subjective This is a pleasant 43 years old female with past medical history of morbid obesity, hypertension, history and fibroids status post hysterectomy, chronic back pain. She presents for elective sleeve gastrectomy. Today is postop day 0, medical consult has been ordered for medical management. Post operatively patient was complaining of from chest pain which is improving with observation. Patient denies dyspnea or dizziness, however she looks drowsy from the anesthesia. No abdominal pain or nausea vomiting. No fever. Except for an asymptomatic mild bradycardia, vitals looks stable. Currently she is on normal saline at 150 mL per hour and various pain medication and Lovenox for DVT prophylaxis. Also she got doses of antibiotics, she has chest pain which is improved . pt is still NPO ,and going for swallow eval in the morning . 11/28/2018 pt was feeling nauseated today , with no chest pain or dyspnea , zofran is given, toradol was added for better pain control , pt is to be evaluated by swallow test and if she pass it she can be started on oral meds and diet. wound in the abd x 3 look healing. pt is able to go to the restroom by her self. Objective - Vital Signs Vital signs: Vital Signs Temp 98.7 F 11/28/18 12:37 Pulse 62 11/28/18 16:13 Resp 16 11/28/18 12:37 BP 153/80 11/28/18 12:37 Pulse Ox 98 11/28/18 16:02 Intake & Output 11/27/18 11/28/18 11/28/18 18:59 06:59 18:59 Intake Total 2200 250 Output Total 10 Balance 2190 250 Weight 127.006 kg Intake: IV 2200 Intake, IV Titration 250 Amount Sodium Phosphate 10 mmol 250 In Sodium Chloride 0.9% 250 ml @ 125 mls/hr IVPB ONCE ONE Rx#:[id number] Output: Estimated Blood Loss 10 Other: Voiding Method Toilet Toilet # Voids 1 1 1 - Exam GENERAL: The patient is alert and oriented x3, not in any acute distress. Well developed, well nourished. HEENT: Pupils are round and equally reacting to light. EOMI. No scleral icterus. No conjunctival pallor. Normocephalic, atraumatic. No pharyngeal erythema. No thyromegaly. CARDIOVASCULAR: S1 and S2 present. No murmurs, rubs, or gallops. PULMONARY: Chest is clear to auscultation, no wheezing or crackles. -ABDOMEN: Soft, nontender, nondistended, normoactive bowel sounds. No palpable organomegaly. 3 small wound in abd wall are healing well MUSCULOSKELETAL: No joint swelling or deformity. EXTREMITIES: No cyanosis, clubbing, or pedal edema. NEUROLOGICAL: Gross neurological examination did not reveal any focal deficits. SKIN: No rashes. - Labs CBC & Chem 7: 11/28/18 11:20 11/28/18 11:20 Labs: Abnormal Lab Results - Last 24 Hours (Table) 11/28/18 11/28/18 Range/Units 11:20 11:20 WBC 13.6 H (3.8-10.6) k/uL Neutrophils # 12.0 H (1.3-7.7) k/uL Creatinine 0.48 L (0.52-1.04) mg/dL Phosphorus 2.2 L (2.5-4.5) mg/dL Assessment and Plan Assessment: She is status post laparoscopic sleeve gastrectomy surgery He attends hernia, status post surgical repair Hypertension Morbid obesity Chronic back pain History of uterine fibroids status post hysterectomy Plan: This is a pleasant 44 years old female who presents for elective sleeve gastrectomy and he Hiatal hernia repair. Labs and medication were reviewed.. Continue same treatment. Continue with symptomatic treatment. Resume home medication. Monitor lytes and vitals. DVT and GI prophylaxis. Pain management and DVT prophylaxis as per surgical team. Further recommendations of the clinical course of the patient Thank you for consulting us, please feel free to contact us for any further question or clarification.
[2018-11-28] MEDS ORDERED: LABETALOL 200 MG TAB PO SCH (21:00)
[2018-11-29] MEDS: KETOROLAC 30 MG/ML 1 ML VIAL IVP SCH ×3 (05:01→12:57)
[2018-11-29] MEDS: LACTATED RINGERS 1,000 ML IV SCH (07:06)
[2018-11-29] MEDS: ALBUTEROL NEBULIZED 2.5 MG/3 ML INHALATION SCH ×3 (08:22→15:22)
[2018-11-29] MEDS ORDERED: MAG HYDROX/AL HYDROX/SIMETH 30 ML CUP PO PRN (08:36)
[2018-11-29] MEDS ORDERED: PANTOPRAZOLE 40 MG TABLET PO SCH (08:45)
[2018-11-29] MEDS: 1: MVI, ADULT NO.4 WITH VIT K 10 ML, THIAMINE 100 MG, FOLIC ACID 1 MG, POTASSIUM CHLORID IV SCH ×12 (08:46→15:03)
[2018-11-29] MEDS: ENOXAPARIN 40 MG/0.4 ML SYRINGE SQ SCH (08:50)
[2018-11-29] MEDS: LABETALOL 200 MG TAB PO SCH (08:58)
[2018-11-29 09:30] LABS: African American GFR (CKD) >90 (>60 ml/min/1.73 sqM); Anion Gap 8 mmol/L; Blood Urea Nitrogen 10 mg/dL (7-17); Calcium 8.7 mg/dL (8.4-10.2); Carbon Dioxide 25 mmol/L (22-30); Chloride 107 mmol/L (98-107); Glucose 86 mg/dL (74-99); Magnesium 1.9 mg/dL (1.6-2.3); Potassium 4.5 mmol/L (3.5-5.1); Sodium 140 mmol/L (137-145)
[2018-11-29 09:32] LABS: Basophils % (A) 0 %; Eosinophils # (A) 0.1 k/uL (0-0.7); Eosinophils % (A) 1 %; HCT 35.2 % (34.0-46.0); HGB 11.3 gm/dL (11.4-16.0); Lymphocytes # (A) 1.5 k/uL (1.0-4.8); Lymphocytes % (A) 18 %; MCH 25.9 pg (25.0-35.0); MCHC 32.1 g/dL (31.0-37.0); MCV 80.6 fL (80.0-100.0); Mean Platelet Volume 8.5; Monocytes # (A) 0.4 k/uL (0-1.0); Monocytes % (A) 5 %; Neutrophils # (A) 6.2 k/uL (1.3-7.7); Neutrophils % (A) 74 %; Platelet Count 196 k/uL (150-450); RBC 4.37 m/uL (3.80-5.40); RDW 15.4 % (11.5-15.5); WBC 8.4 k/uL (3.8-10.6)
--- NOTE | 2018-11-29 11:08 | P.PN ---
<Tequila Gandhi Tasha - Last Filed: 11/29/18 11:05> Subjective Progress Note Date: 11/29/18 CHIEF COMPLAINT: Morbid obesity HISTORY OF PRESENT ILLNESS: 43-year-old female who is status post laparoscopic sleeve gastrectomy with repair of hiatal hernia. POD #2. Patient examined this morning at the bedside. Patient reports improvement in her nausea. She is tolerating clear liquids. She reports having an orange sherbet last night which gave her bad heartburn. This morning she only drank some broth and water. WBC 8.4. Hemoglobin 11.3. PHYSICAL EXAM: VITAL SIGNS: Reviewed. GENERAL: Well-developed in no acute distress. HEENT: No sclera icterus. Extraocular movements grossly intact. Moist buccal mucosa. Head is atraumatic, normocephalic. ABDOMEN: Obese. Soft. Nondistended. Surgical tenderness. Surgical sites clean dry and intact without drainage or signs of infection. NEUROLOGIC: Alert and oriented. Cranial nerves II through XII grossly intact. ASSESSMENT: 1. Morbid obesity, status post sleeve gastrectomy and hiatal hernia repair PLAN: 1. Continue clear liquid diet. Patient encouraged to increase oral intake 2. Continue Protonix. We will add Maalox. 3. Activity as tolerated. Patient encouraged to be ambulate in the hallway today. 4. Incentive spirometry 5. Pain control. Continue [place] and Toradol 6. Anticipate discharge home tomorrow Nurse practitioner note has been reviewed by physician. Signing provider agrees with the documented findings, assessment, and plan of care. Objective - Vital Signs Vital signs: Vital Signs Temp 98.6 F 11/29/18 07:06 Pulse 65 11/29/18 08:18 Resp 17 11/29/18 07:06 BP 167/90 11/29/18 07:06 Pulse Ox 92 L 11/29/18 08:18 Intake & Output 11/28/18 11/29/18 11/29/18 18:59 06:59 18:59 Intake Total 250 Balance 250 Weight 127.006 kg Intake: Intake, IV Titration 250 Amount Sodium Phosphate 10 mmol 250 In Sodium Chloride 0.9% 250 ml @ 125 mls/hr IVPB ONCE ONE Rx#:[id number] Other: Voiding Method Toilet Toilet # Voids 1 2 - Labs CBC & Chem 7: 11/29/18 08:50 11/29/18 08:50 Labs: Abnormal Lab Results - Last 24 Hours (Table) 11/28/18 11/28/18 11/29/18 Range/Units 11:20 11:20 08:50 WBC 13.6 H (3.8-10.6) k/uL Hgb 11.3 L (11.4-16.0) gm/dL Neutrophils # 12.0 H (1.3-7.7) k/uL Creatinine 0.48 L (0.52-1.04) mg/dL Phosphorus 2.2 L (2.5-4.5) mg/dL <Nitesh Goss - Last Filed: 11/29/18 20:51> Objective - Vital Signs Vital signs: Vital Signs Temp 98.8 F 11/29/18 15:00 Pulse 64 11/29/18 15:00 Resp 16 11/29/18 15:00 BP 182/85 11/29/18 15:00 Pulse Ox 98 11/29/18 15:00 Intake & Output 11/29/18 11/29/18 11/30/18 06:59 18:59 06:59 Intake Total 1140 Balance 1140 Intake: Oral 1140 Other: Voiding Method Toilet # Voids 2 - Labs CBC & Chem 7: 11/29/18 08:50 11/29/18 08:50 Labs: Abnormal Lab Results - Last 24 Hours (Table) 11/29/18 Range/Units 08:50 Hgb 11.3 L (11.4-16.0) gm/dL Assessment and Plan (1) Morbid obesity Status: Acute Code(s): E66.01 - MORBID (SEVERE) OBESITY DUE TO EXCESS CALORIES SNOMED Code(s): 742908638
--- NOTE | 2018-11-29 12:46 | P.PN ---
Subjective This is a pleasant 43 years old female with past medical history of morbid obesity, hypertension, history and fibroids status post hysterectomy, chronic back pain. She presents for elective sleeve gastrectomy. Today is postop day 0, medical consult has been ordered for medical management. Post operatively patient was complaining of from chest pain which is improving with observation. Patient denies dyspnea or dizziness, however she looks drowsy from the anesthesia. No abdominal pain or nausea vomiting. No fever. Except for an asymptomatic mild bradycardia, vitals looks stable. Currently she is on normal saline at 150 mL per hour and various pain medication and Lovenox for DVT prophylaxis. Also she got doses of antibiotics, she has chest pain which is improved . pt is still NPO ,and going for swallow eval in the morning . 11/28/2018 pt was feeling nauseated today , with no chest pain or dyspnea , zofran is given, toradol was added for better pain control , pt is to be evaluated by swallow test and if she pass it she can be started on oral meds and diet. wound in the abd x 3 look healing. pt is able to go to the restroom by her self. 11/29/2018 Patient is feeling well today, her nausea has resolved, no vomiting. She denies chest pain or dyspnea. No abdominal pain. She didn't have bowel movement but she passing gases only. Her leukocytosis came back to normal. BMP and magnesium are within normal limits as well. She is hemodynamically stable. Her labetalol was restarted and her blood pressure is improving. Her pain was controlled. Patient is moving well with no need for physical therapy. Primary surgical team are following the case and plan for discharge patient with a if she is tolerating her diet. Patient has no new symptoms and she looks his stable medically for discharge. Patient was instructed to follow up with her PCP in one week and she agrees Objective - Vital Signs Vital signs: Vital Signs Temp 98.6 F 11/29/18 07:06 Pulse 65 11/29/18 08:18 Resp 17 11/29/18 07:06 BP 167/90 11/29/18 07:06 Pulse Ox 92 L 11/29/18 08:18 Intake & Output 11/28/18 11/29/18 11/29/18 18:59 06:59 18:59 Intake Total 250 400 Balance 250 400 Weight 127.006 kg Intake: Intake, IV Titration 250 Amount Sodium Phosphate 10 mmol 250 In Sodium Chloride 0.9% 250 ml @ 125 mls/hr IVPB ONCE ONE Rx#:[id number] Oral 400 Other: Voiding Method Toilet Toilet # Voids 1 2 - Exam GENERAL: The patient is alert and oriented x3, not in any acute distress. Well developed, well nourished. HEENT: Pupils are round and equally reacting to light. EOMI. No scleral icterus. No conjunctival pallor. Normocephalic, atraumatic. No pharyngeal erythema. No thyromegaly. CARDIOVASCULAR: S1 and S2 present. No murmurs, rubs, or gallops. PULMONARY: Chest is clear to auscultation, no wheezing or crackles. -ABDOMEN: Soft, nontender, nondistended, normoactive bowel sounds. No palpable organomegaly. 3 small wound in abd wall are healing well MUSCULOSKELETAL: No joint swelling or deformity. EXTREMITIES: No cyanosis, clubbing, or pedal edema. NEUROLOGICAL: Gross neurological examination did not reveal any focal deficits. SKIN: No rashes. - Labs CBC & Chem 7: 11/29/18 08:50 11/29/18 08:50 Labs: Abnormal Lab Results - Last 24 Hours (Table) 11/29/18 Range/Units 08:50 Hgb 11.3 L (11.4-16.0) gm/dL Assessment and Plan Assessment: Morbid obesity She is status post laparoscopic sleeve gastrectomy surgery He attends hernia, status post surgical repair Hypertension Chronic back pain History of uterine fibroids status post hysterectomy Plan: This is a pleasant 44 years old female who presents for elective sleeve gastrectomy and he Hiatal hernia repair. Labs and medication were reviewed.. Continue same treatment. Continue with symptomatic treatment. Resume home medication. Monitor lytes and vitals. DVT and GI prophylaxis. Pain management and DVT prophylaxis as per surgical team. Further recommendations of the clinical course of the patient We recommend patient follow up with her PCP Dr. Tate in one week Thank you for consulting us, please feel free to contact us for any further question or clarification.
[2018-11-29] MEDS ORDERED: amLODIPine 5 MG TAB PO SCH (14:15)
--- NOTE | 2018-11-29 15:00 | P.DS ---
<Tequila Gandhi - Last Filed: 11/29/18 15:00> Providers Expected date of discharge: 11/29/18 Hospital Course: 43-year-old female who is status post laparoscopic sleeve gastrectomy with repair of hiatal hernia. Patient is doing well postoperatively without any immediate complications. She is tolerating a liquid diet. Pain is controlled with oral medications. Her vital signs have been stable. She is stable for discharge home today. Please see EMR for further hospital course details. Discharge Diagnosis: 1. Morbid obesity, status post sleeve gastrectomy and hiatal hernia repair Nurse practitioner note has been reviewed by physician. Signing provider agrees with the documented findings, assessment, and plan of care. Plan - Discharge Summary Discharge Rx Participant: Yes New Discharge Prescriptions: New Sucralfate [Carafate] 1 gm PO BID #500 ml Bisacodyl [Dulcolax] 5 mg PO DAILY PRN #10 tablet. PRLisette Reason: Constipation Simethicone 40 mg/0.6 ml Drops [Mylicon Drops] 40 mg PO PCHS PRN #30 ml PRN Reason: gas Ondansetron Odt [Zofran Odt] 4 mg PO Q8HR PRN #9 tab PRN Reason: Nausea HYDROcodone/APAP [[place] Elixir 7.5-325Mg/15Ml] 15 ml PO Q6HR PRN 3 Days #180 ml PRN Reason: Pain amLODIPine [Norvasc] 5 mg PO DAILY #30 tab Pantoprazole [Protonix] 40 mg PO AC-BRKFST #15 tablet. Continue Labetalol HCl [Trandate] 600 mg PO HS Labetalol [Trandate] 400 mg PO QAM Discharge Medication List Labetalol HCl [Trandate] 600 mg PO HS 08/25/17 [History] Labetalol [Trandate] 400 mg PO QAM 11/15/18 [History] Bisacodyl [Dulcolax] 5 mg PO DAILY PRN #10 tablet. 11/29/18 [Rx] HYDROcodone/APAP [[place] Elixir 7.5-325Mg/15Ml] 15 ml PO Q6HR PRN 3 Days #180 ml 11/29/18 [Rx] Ondansetron Odt [Zofran Odt] 4 mg PO Q8HR PRN #9 tab 11/29/18 [Rx] Pantoprazole [Protonix] 40 mg PO EPIFANIO-BRKFST #15 tablet. 11/29/18 [Rx] Simethicone 40 mg/0.6 ml Drops [Mylicon Drops] 40 mg PO PCHS PRN #30 ml 11/29/18 [Rx] Sucralfate [Carafate] 1 gm PO BID #500 ml 11/29/18 [Rx] amLODIPine [Norvasc] 5 mg PO DAILY #30 tab 11/29/18 [Rx] Follow up Appointment(s)/Referral(s): [facility] [[facility]-STAFF] - 12/12/18 2:30 pm Isela Tate MD [Primary Care Provider] - 12/04/18 2:00 pm ( ) Patient Instructions/Handouts: Nutrition after Bariatric Surgery (DC), Laparoscopic Sleeve Gastrectomy (DC) Activity/Diet/Wound Care/Special Instructions: No driving while taking [place] No lifting over 10 pounds You may shower. No soaking or tub baths Very light activity until you are reevaluated at your follow up appointment with your surgeon Clear liquid diet. No straws or carbonated beverages Discharge Disposition: HOME SELF-CARE <Nitesh Goss - Last Filed: 11/29/18 20:51> Providers Date of admission: 11/27/18 06:57 Attending physician: Nitesh Goss Consults: 11/27/18 10:20 Consult Physician Routine Consulting Provider: Liz Villarreal Consult Reason/Comments: Medical management Do you want consulting provider notified?: Yes Primary care physician: Isela Tate - Discharge Diagnosis(es) (1) Morbid obesity Status: Acute Hospital Course: As above. Patient doing well today. We'll discharge. Follow-up one week.
[2018-11-29 15:26] VITALS: RESP 16
[2018-11-29 16:45] VITALS: BP 172/76; PULSE 64; TEMP 98.8
== END 2018-11-29 17:52 | disposition home or self-care (01) | DRG 621 ==
LOC: 2ORMAIN 06:57 → 4SSUR 10:19
PROVIDERS: ADMIT Surgery; ATTEND Surgery
PROC: 0BQT4ZZ Repair Diaphragm, Percutaneous Endoscopic Approach (ICD-10-PCS; 2018-11-27)
PROC: 0DB64Z3 Excision of Stomach, Percutaneous Endoscopic Approach, Vertical (ICD-10-PCS; principal; 2018-11-27 08:00)
DX: E66.01 Morbid (severe) obesity due to excess calories (principal); Z68.41 Body mass index [BMI] 40.0-44.9, adult; D50.9 Iron deficiency anemia, unspecified; G89.29 Other chronic pain; I10 Essential (primary) hypertension; K44.9 Diaphragmatic hernia without obstruction or gangrene; Z87.891 Personal history of nicotine dependence; Z90.710 Acquired absence of both cervix and uterus; M54.9 Dorsalgia, unspecified; Z82.0 Family history of epilepsy and other diseases of the nervous system
CPT/HCPCS: 74240; 80048; 80051; 82310; 82565; 83735; 84100; 84520; 85025; 88307; 93005; 94640; 94760; 94762

== ENCOUNTER → 2018-12-01 | Outpatient (CLI) | payer BC, OTHER ==
[2018-12-01 14:17] VITALS: BP 164/85; PULSE 70; TEMP 98.3; BMI 42.0
== END ==
LOC: BARWHC3 10:15
PROVIDERS: ATTEND Surgery
DX: Z48.815 Encounter for surgical aftercare following surgery on the digestive system (principal); E66.01 Morbid (severe) obesity due to excess calories; Z68.41 Body mass index [BMI] 40.0-44.9, adult; Z98.84 Bariatric surgery status
CPT/HCPCS: 99211

== ENCOUNTER → 2018-12-12 | Outpatient (CLI) | payer BC ==
[2018-12-12 15:00] VITALS: BP 174/88; PULSE 75; RESP 16; TEMP 98; BMI 40.5
--- NOTE | 2018-12-12 16:03 | P.BASOAP ---
Subjective Progress Note Date: 12/12/18 Principal diagnosis: Morbid obesity Patient returns for recheck. She is 2 weeks postop. Denies pain, no nausea or vomiting, no reflux. She has lost 10 pounds. Adequate protein and liquid intake. Objective - Vital Signs Vital signs: Vital Signs Temp 98 F 12/12/18 14:54 Pulse 75 12/12/18 14:54 Resp 16 12/12/18 14:54 BP 174/88 12/12/18 14:54 Pulse Ox Intake & Output 12/11/18 12/12/18 12/12/18 18:59 06:59 18:59 Weight 115.666 kg - Exam Abdomen: Soft, nondistended, incision clean dry Assessment/Plan (1) Morbid obesity Narrative/Plan: Patient doing well postoperatively. Continue gradually advancing diet. Continue light duties. Follow-up 2 weeks. Check one month labs at that time. Plan: Date: 12/12/18 Initial Weight: 126.915 kg Initial BMI: 44.4 Current Weight: 115.666 kg Current BMI: 40.5 Type of Surgery: Total Volume in Band: Previous Volume: Volume Removed: Volume Added: Band Size:
== END | disposition home or self-care (01) ==
LOC: BARWHC3 14:41
PROVIDERS: ATTEND Surgery
DX: Z48.815 Encounter for surgical aftercare following surgery on the digestive system (principal); E66.01 Morbid (severe) obesity due to excess calories; Z68.41 Body mass index [BMI] 40.0-44.9, adult
CPT/HCPCS: 97802; 99211

== ENCOUNTER → 2018-12-26 | Outpatient (CLI) | payer BC ==
[2018-12-26 12:48] VITALS: BP 140/76; PULSE 69; TEMP 97.8
[2018-12-26 13:42] VITALS: BMI 39.8
--- NOTE | 2018-12-26 13:49 | P.BASOAP ---
Subjective Progress Note Date: 12/26/18 Principal diagnosis: Morbid obesity Patient returns today for reevaluation. Last seen 2 weeks ago. She has lost 5 pounds since that time. She did run out of her omeprazole and had bad reflux. It resolved once she restarted her antiacid therapy. Rare episodes of vomiting with certain foods like milk and tomatoes. No fevers. No pain. Objective - Vital Signs Vital signs: Vital Signs Temp 97.8 F 12/26/18 12:45 Pulse 69 12/26/18 12:45 Resp BP 140/76 12/26/18 12:45 Pulse Ox Intake & Output 12/25/18 12/26/18 12/26/18 18:59 06:59 18:59 Weight 113.716 kg - Exam Abdomen: Soft, nontender, nondistended, incisions clean and dry Assessment/Plan (1) Morbid obesity Narrative/Plan: Patient doing well at this time. Continue dietary and exercise regimen. Continue antiacids. We'll check one month labs. Follow up one month. Plan: Date: 12/26/18 Initial Weight: 126.915 kg Initial BMI: 44.4 Current Weight: 113.716 kg Current BMI: 39.8 Type of Surgery: Total Volume in Band: Previous Volume: Volume Removed: Volume Added: Band Size:
[2018-12-26 14:24] LABS: HCT 40.7 % (34.0-46.0); HGB 13.2 gm/dL (11.4-16.0); MCH 26.5 pg (25.0-35.0); MCHC 32.3 g/dL (31.0-37.0); MCV 82.1 fL (80.0-100.0); Mean Platelet Volume 8.5; Platelet Count 270 k/uL (150-450); RBC 4.96 m/uL (3.80-5.40); WBC 9.8 k/uL (3.8-10.6)
[2018-12-26 19:00] LABS: African American GFR (CKD) 123.9 (60.0-200.0); Albumin 4.5 g/dL (3.80-4.90); Albumin/Globulin Ratio 2.37 (1.60-3.17); Anion Gap 8.3 mmol/L (4.00-12.00); BUN/Creat Ratio 22.86 Ratio (12.00-20.00); Calcium 9.4 mg/dL (8.7-10.3); Carbon Dioxide 24.7 mmol/L (21.6-31.8); Globulin 1.9 g/dL (1.6-3.3); Potassium 4.7 mmol/L (3.5-5.5); Total Bilirubin 0.4 mg/dL (0.2-1.2); Total Protein 6.4 g/dL (6.2-8.2)
[2018-12-26 19:20] LABS: Folate, Serum 16.3 ng/mL
== END | disposition home or self-care (01) ==
LOC: BARWHC3 12:33
PROVIDERS: ATTEND Surgery
DX: E66.01 Morbid (severe) obesity due to excess calories (principal); E55.9 Vitamin D deficiency, unspecified; Z68.39 Body mass index [BMI] 39.0-39.9, adult
CPT/HCPCS: 36415; 80053; 82306; 82607; 82746; 83540; 84425; 85027; 97803; 99211

== ENCOUNTER → 2020-01-05 | Outpatient (CLI) | payer OTHER ==
--- NOTE | 2020-01-05 13:27 | XR ---
EXAMINATION TYPE: XR chest 2V DATE OF EXAM ORDERED: 01/05/2020 HISTORY: Z02.1. REFERENCE: None. FINDINGS: The lungs are clear. Pleural spaces are clear. Heart size is normal. IMPRESSION: NORMAL CHEST.
== END | disposition home or self-care (01) ==
LOC: RADXRMAIN 12:28
PROVIDERS: ATTEND Emergency Medicine
DX: Z02.1 Encounter for pre-employment examination (principal)
CPT/HCPCS: 71046

== ENCOUNTER → 2020-10-28 | Outpatient (CLI) | payer BC, OTHER ==
[2020-10-28 15:39] VITALS: BP 121/82; PULSE 74; TEMP 98.6; BMI 34.9
--- NOTE | 2020-10-28 17:31 | P.BASOAP ---
Subjective Progress Note Date: 10/28/20 Principal diagnosis: Morbid obesity Patient with very poor follow-up. She'll he saw me 2 times after her surgery was performed in December 2018. Since that time the patient has lost approximately 30 more pounds. Lowest weight was 212. Still eating approximately one fourth of what she used to eat. She is due for lab work. Patient describes bad reflux. Reflux symptoms worse with acidic foods. When she takes her antiacids symptoms are improved. She was told her vitamin D was low. Objective - Vital Signs Vital signs: Vital Signs Temp 98.6 F 10/28/20 15:37 Pulse 74 10/28/20 15:37 Resp BP 121/82 10/28/20 15:37 Pulse Ox Intake & Output 10/27/20 10/28/20 10/28/20 18:59 06:59 18:59 Weight 99.79 kg - Exam Abdomen: Soft, nontender, nondistended Assessment/Plan (1) Morbid obesity Narrative/Plan: Patient with poor follow-up unfortunately after surgery. Despite that she has done fairly well. Continue daily antiacid therapy for ongoing reflux. Continue dietary and exercise regimen. We'll check annual lab work at this time. Follow-up 6-12 months. Plan: Date: 10/28/20 Initial Weight: 126.915 kg Initial BMI: 44.4 Current Weight: 99.79 kg Current BMI: 34.9 Type of Surgery: Total Volume in Band: Previous Volume: Volume Removed: Volume Added: Band Size:
== END ==
LOC: BARWHC3 13:05
PROVIDERS: ATTEND Surgery
DX: E66.01 Morbid (severe) obesity due to excess calories (principal); K21.9 Gastro-esophageal reflux disease without esophagitis; Z68.34 Body mass index [BMI] 34.0-34.9, adult; Z87.891 Personal history of nicotine dependence
CPT/HCPCS: 99211

== ENCOUNTER → 2021-11-10 | Outpatient (CLI) | payer BC, OTHER ==
[2021-11-10 13:37] VITALS: BP 155/83; PULSE 86; RESP 16; TEMP 98.4; BMI 34.9
--- NOTE | 2021-11-10 13:51 | P.BASOAP ---
Subjective Progress Note Date: 11/10/21 Principal diagnosis: Morbid obesity 46-year-old female returns for bariatric evaluation. She was last seen 1 year ago. Patient has maintained her weight at 220. She takes antiacids daily and with that her heartburn is well controlled. No pain. Patient is exercising regularly. Objective - Vital Signs Vital signs: Vital Signs Temp 98.4 F 11/10/21 13:32 Pulse 86 11/10/21 13:32 Resp 16 11/10/21 13:32 BP 155/83 11/10/21 13:32 Pulse Ox FiO2 Intake & Output 11/09/21 11/10/21 11/10/21 18:59 06:59 18:59 Weight 99.79 kg - Exam Abdomen: Soft, nontender, nondistended Assessment/Plan (1) Morbid obesity Narrative/Plan: 46-year-old female doing well after previous sleeve gastrectomy. Still having some heartburn issues but controlled with antiacids. Continue increasing activity. Continue caloric monitoring. Patient states she eats 25% of which he used to eat. She will follow-up in 1 year. Annual labs have been ordered. Plan: Date: 11/10/21 Initial Weight: 126.915 kg Initial BMI: 44.4 Current Weight: 99.79 kg Current BMI: 34.9 Type of Surgery: Vertical Sleeve Gastrectomy Total Volume in Band: Previous Volume: Volume Removed: Volume Added: Band Size:
== END ==
LOC: BARWHC3 13:13
PROVIDERS: ATTEND Surgery
DX: E66.01 Morbid (severe) obesity due to excess calories (principal); Z68.34 Body mass index [BMI] 34.0-34.9, adult; Z98.84 Bariatric surgery status; Z87.891 Personal history of nicotine dependence
CPT/HCPCS: 99211

== ENCOUNTER → 2022-11-09 | Outpatient (CLI) | payer BC, OTHER ==
[2022-11-09 13:13] VITALS: BP 137/84; PULSE 66; RESP 16; TEMP 98.2; BMI 34.3
--- NOTE | 2022-11-09 13:36 | P.BASOAP ---
Subjective Progress Note Date: 11/09/22 Principal diagnosis: Morbid obesity Patient returns for annual bariatric evaluation. She has lost 4 pounds since her last visit. Taking antacids twice daily. With that she has fairly good control of her reflux. No vomiting. Still well restricted. Objective - Vital Signs Vital signs: Vital Signs Temp 98.2 F 11/09/22 13:12 Pulse 66 11/09/22 13:12 Resp 16 11/09/22 13:12 BP 137/84 11/09/22 13:12 Pulse Ox FiO2 Intake & Output 11/08/22 11/09/22 11/09/22 18:59 06:59 18:59 Weight 97.976 kg - Exam Abdomen: Soft, nontender, nondistended Assessment/Plan (1) Morbid obesity Narrative/Plan: 47-year-old female doing well after previous sleeve gastrectomy 4 years ago. Continue twice daily antiacids. Continue dietary and exercise regimen. Check annual labs. Follow-up 1 year. Plan: Date: 11/09/22 Initial Weight: 126.915 kg Initial BMI: 44.4 Current Weight: 97.976 kg Current BMI: 34.3 Type of Surgery: Vertical Sleeve Gastrectomy Total Volume in Band: Previous Volume: Volume Removed: Volume Added: Band Size:
== END ==
LOC: BARWHC3 13:02
PROVIDERS: ATTEND Surgery
DX: E66.01 Morbid (severe) obesity due to excess calories (principal); Z98.84 Bariatric surgery status; Z71.3 Dietary counseling and surveillance; Z68.34 Body mass index [BMI] 34.0-34.9, adult; Z87.891 Personal history of nicotine dependence
CPT/HCPCS: 99211